=== PATIENT | female | born 1970 ===

== ENCOUNTER 2020-10-08 04:01 | Emergency (ER) | payer BC, OTHER ==
[2020-10-08] MEDS ORDERED: Ondansetron 4 MG Tab.DIS PO ONE (04:02)
[2020-10-08] MEDS ORDERED: Sodium Chloride 0.9% 1,000 ML IV ONE (04:10)
[2020-10-08] MEDS ORDERED: Ondansetron 4 MG/2 ML SDV IVPUSH PRN (04:12)
--- NOTE | 2020-10-08 04:34 | EDM.PDOC ---
ED HPI GENERAL MEDICAL PROBLEM - General Stated Complaint: HAS DKE, HIGH BLOOD SUGAR Time Seen by Provider: 10/08/20 04:28 Source of Information: Reports: Patient, Family History Limitations: Reports: No Limitations - History of Present Illness INITIAL COMMENTS - FREE TEXT/NARRATIVE: ED per w/c with report of DKA. Hx of episodes every 2-5 months, Recent hospitalization 2 weeks ago/ Onset sx 2 days prior. Vomiting weakness, BS 250's. Primary care, [facility]. Here in area for fishing trip with family. Abdomen Pain Score (Numeric/FACES): 8 - Related Data Allergies Allergy/AdvReac Type Severity Reaction Status Date / Time No Known Allergies Allergy Verified 10/08/20 04:41 Home Meds: Home Meds Insulin Lispro 100 unit SQ 10/08/20 [History] Ondansetron [Zofran ODT] 10/08/20 [History] ED ROS GENERAL - Review of Systems Review Of Systems: See Below Constitutional: Reports: Decreased Appetite. Denies: Fever, Chills HEENT: Reports: Glasses Respiratory: Reports: No Symptoms Cardiovascular: Reports: No Symptoms Endocrine: Reports: High Glucose GI/Abdominal: Reports: Abdominal Pain, Nausea, Vomiting : Reports: No Symptoms Musculoskeletal: Reports: No Symptoms Skin: Reports: No Symptoms Neurological: Reports: No Symptoms Psychiatric: Reports: No Symptoms ED EXAM GENERAL NO PERIP PULSE - Physical Exam Exam: See Below Exam Limited By: No Limitations General Appearance: Alert, Mild Distress, Obese Eye Exam: Bilateral Eye: EOMI Ears: Normal External Exam Nose: Normal Inspection Throat/Mouth: Normal Inspection Head: Atraumatic, Normocephalic Neck: Normal Inspection Respiratory/Chest: No Respiratory Distress, Lungs Clear, Normal Breath Sounds Cardiovascular: Regular Rate, Rhythm, Tachycardia GI/Abdominal: Normal Bowel Sounds, Tender (general) Extremities: Normal Inspection Neurological: Alert, Oriented, Normal Cognition Psychiatric: Normal Affect Skin Exam: Warm, Dry, Intact, Tattoo(s) #1 Interpretation EKG Date: 10/08/20 Time: 05:05 Rhythm: Other Rate (Beats/Min): 118 P-Wave: Present QRS: Normal ST-T: Normal Comparison: NA - No Prior EKG Course - Vital Signs Last Recorded V/S: Last Vital Signs Temp 97.2 F 10/08/20 04:36 Pulse 124 H 10/08/20 04:36 Resp 16 10/08/20 04:36 BP 162/99 H 10/08/20 04:36 Pulse Ox 93 L 10/08/20 04:36 - Orders/Labs/Meds Labs: Laboratory Tests 10/08/20 10/08/20 10/08/20 Range/Units 04:17 04:28 04:28 WBC 16.6 H (5.0-10.0) 10^3/uL RBC 4.88 (4.2-5.4) 10^6/uL Hgb 12.9 (12.0-16.0) g/dL Hct 39.7 (37.0-47.0) % MCV 81.4 (80-100) fL MCH 26.4 L (27.0-34.0) pg MCHC 32.5 L (33.0-35.0) g/dL Plt Count 319 (150-450) 10^3/uL Neut % (Auto) 89.0 H (42.2-75.2) % Lymph % (Auto) 6.3 L (20.5-50.1) % [place] % (Auto) 4.6 (2-8) % Eos % (Auto) 0.0 L (1.0-3.0) % Baso % (Auto) 0.1 (0.0-1.0) % ABG pH (7.35-7.45) ABG pCO2 (35-45) mmHg ABG pO2 (70-100) mmHg ABG HCO3 (22-26) mmol/L ABG O2 Saturation (95-100) % ABG Base Excess ((-2)-(+3)) mmol/L Stepan Test O2 Delivery Device Sodium 136 (136-145) mmol/L Potassium 4.4 (3.5-5.1) mmol/L Chloride 98 (98-107) mmol/L Carbon Dioxide 27 (21-32) mmol/L Anion Gap 15.4 H (7-13) mEq/L BUN 18 (7-18) mg/dL Creatinine 0.93 (0.55-1.02) mg/dL Est Cr Clr Drug Dosing 62.49 mL/min Estimated GFR (MDRD) > 60 BUN/Creatinine Ratio 19.4 (No establ ref range) Glucose 287 H (70-99) mg/dL POC Glucose 275 H (70-99) mg/dL Lactic Acid (0.4-2.0) mmol/L Calcium 9.1 (8.5-10.1) mg/dL Magnesium 1.4 L (1.8-2.4) mg/dL Total Bilirubin 0.4 (0.2-1.0) mg/dL AST 20 (15-37) U/L ALT 27 (14-59) U/L Alkaline Phosphatase 135 H (46-116) U/L B-Natriuretic Peptide 83 (0-100) pg/ml Total Protein 7.3 (6.4-8.2) g/dL Albumin 3.1 L (3.4-5.0) g/dL Globulin 4.2 Albumin/Globulin Ratio 0.74 Ketones Small-20 mg/dl Influenza Type A RNA (NEGATIVE) Influenza Type B RNA (NEGATIVE) SARS-CoV-2 RNA ([place]OR) (NEGATIVE) 10/08/20 10/08/20 10/08/20 Range/Units 04:28 04:46 04:59 WBC (5.0-10.0) 10^3/uL RBC (4.2-5.4) 10^6/uL Hgb (12.0-16.0) g/dL Hct (37.0-47.0) % MCV (80-100) fL MCH (27.0-34.0) pg MCHC (33.0-35.0) g/dL Plt Count (150-450) 10^3/uL Neut % (Auto) (42.2-75.2) % Lymph % (Auto) (20.5-50.1) % [place] % (Auto) (2-8) % Eos % (Auto) (1.0-3.0) % Baso % (Auto) (0.0-1.0) % ABG pH 7.43 (7.35-7.45) ABG pCO2 38 (35-45) mmHg ABG pO2 79 (70-100) mmHg ABG HCO3 24.5 (22-26) mmol/L ABG O2 Saturation 95 (95-100) % ABG Base Excess 1 ((-2)-(+3)) mmol/L Stepan Test Performed O2 Delivery Device Room air Sodium (136-145) mmol/L Potassium (3.5-5.1) mmol/L Chloride (98-107) mmol/L Carbon Dioxide (21-32) mmol/L Anion Gap (7-13) mEq/L BUN (7-18) mg/dL Creatinine (0.55-1.02) mg/dL Est Cr Clr Drug Dosing mL/min Estimated GFR (MDRD) BUN/Creatinine Ratio (No establ ref range) Glucose (70-99) mg/dL POC Glucose (70-99) mg/dL Lactic Acid 1.5 (0.4-2.0) mmol/L Calcium (8.5-10.1) mg/dL Magnesium (1.8-2.4) mg/dL Total Bilirubin (0.2-1.0) mg/dL AST (15-37) U/L ALT (14-59) U/L Alkaline Phosphatase (46-116) U/L B-Natriuretic Peptide (0-100) pg/ml Total Protein (6.4-8.2) g/dL Albumin (3.4-5.0) g/dL Globulin Albumin/Globulin Ratio Ketones Influenza Type A RNA Negative (NEGATIVE) Influenza Type B RNA Negative (NEGATIVE) SARS-CoV-2 RNA ([place]OR) Negative (NEGATIVE) 10/08/20 10/08/20 Range/Units 05:16 07:19 WBC (5.0-10.0) 10^3/uL RBC (4.2-5.4) 10^6/uL Hgb (12.0-16.0) g/dL Hct (37.0-47.0) % MCV (80-100) fL MCH (27.0-34.0) pg MCHC (33.0-35.0) g/dL Plt Count (150-450) 10^3/uL Neut % (Auto) (42.2-75.2) % Lymph % (Auto) (20.5-50.1) % [place] % (Auto) (2-8) % Eos % (Auto) (1.0-3.0) % Baso % (Auto) (0.0-1.0) % ABG pH (7.35-7.45) ABG pCO2 (35-45) mmHg ABG pO2 (70-100) mmHg ABG HCO3 (22-26) mmol/L ABG O2 Saturation (95-100) % ABG Base Excess ((-2)-(+3)) mmol/L Stepan Test O2 Delivery Device Sodium (136-145) mmol/L Potassium (3.5-5.1) mmol/L Chloride (98-107) mmol/L Carbon Dioxide (21-32) mmol/L Anion Gap (7-13) mEq/L BUN (7-18) mg/dL Creatinine (0.55-1.02) mg/dL Est Cr Clr Drug Dosing mL/min Estimated GFR (MDRD) BUN/Creatinine Ratio (No establ ref range) Glucose (70-99) mg/dL POC Glucose 242 H 241 H (70-99) mg/dL Lactic Acid (0.4-2.0) mmol/L Calcium (8.5-10.1) mg/dL Magnesium (1.8-2.4) mg/dL Total Bilirubin (0.2-1.0) mg/dL AST (15-37) U/L ALT (14-59) U/L Alkaline Phosphatase (46-116) U/L B-Natriuretic Peptide (0-100) pg/ml Total Protein (6.4-8.2) g/dL Albumin (3.4-5.0) g/dL Globulin Albumin/Globulin Ratio Ketones Influenza Type A RNA (NEGATIVE) Influenza Type B RNA (NEGATIVE) SARS-CoV-2 RNA ([place]) (NEGATIVE) Meds: Medications Discontinued Medications Generic Name Dose Route Start Last Admin Trade Name Freq PRN Reason Stop Dose Admin Dextrose/Water 50 ml 10/08/20 05:03 50% Dextrose In Water 50 Ml Syringe IV Q15M PRN Hypoglycemia Glucagon 1 mg 10/08/20 05:03 Glucagon,Human Recombinant 1 Mg Vial IM Q15M PRN Hypoglycemia Sodium Chloride 1,000 mls @ 999 mls/hr 10/08/20 04:10 10/08/20 04:34 Normal Saline IV 10/08/20 05:10 999 mls/hr .BOLUS ONE Administration Insulin Human Regular 5 unit 10/08/20 05:03 Insulin Regular, Human 100 Units/Ml 3 Ml Vial IV 10/08/20 05:04 ONETIME ONE Iopamidol 100 ml 10/08/20 05:57 10/08/20 05:59 Iopamidol 612 Mg/Ml 100 Ml Bottle IVPUSH 10/08/20 05:58 100 ml ONETIME ONE Administration Morphine Sulfate 2 mg 10/08/20 05:02 10/08/20 05:11 Morphine 2 Mg/Ml Syringe IVPUSH 10/08/20 05:03 2 mg ONETIME ONE Administration Morphine Sulfate 2 mg 10/08/20 05:33 10/08/20 06:40 Morphine 2 Mg/Ml Syringe IVPUSH 2 mg ONETIME PRN Administration Pain Ondansetron HCl 4 mg 10/08/20 04:12 10/08/20 04:34 Ondansetron 4 Mg/2 Ml Sdv IVPUSH 4 mg ONETIME PRN Administration Nausea/Vomiting Ondansetron HCl Confirm 10/08/20 07:14 10/08/20 07:27 Ondansetron 4 Mg Tab.Dis Administered 10/08/20 07:15 Not Given Dose 4 mg .ROUTE .STK-MED ONE Departure - Departure Time of Disposition: 06:59 Disposition: Home, Self-Care 01 Condition: Good Clinical Impression: Hyperglycemia - Discharge Information *PRESCRIPTION DRUG MONITORING PROGRAM REVIEWED*: No *COPY OF PRESCRIPTION DRUG MONITORING REPORT IN PATIENT SILVESTRE: No Instructions: Hyperglycemia, [id number] Additional Instructions: rest monitor blood sugars, follow up if increasing and not responding to short acting insulin light diet increase fluids zofran 4mg ODT one every 4 hours as needed for nausea
[2020-10-08 05:00] LABS: BASE EXCESS ARTERIAL 1 mmol/L ((-2)-(+3)); BICARBONATE,ARTERIAL 24.5 mmol/L (22-26); O2 DELIVERY DEVICE ROOM AIR; O2 SATURATION ARTERIAL 95 % (95-100); PCO2 ARTERIAL 38 mmHg (35-45); PO2 ARTERIAL 79 mmHg (70-100)
[2020-10-08 05:01] LABS: ALLEN TEST PERFORMED
[2020-10-08] MEDS ORDERED: Morphine 2 MG/ML SYRINGE IVPUSH ONE (05:02)
[2020-10-08] MEDS ORDERED: Glucagon,Human Recombinant 1 MG Vial IM PRN (05:03)
[2020-10-08] MEDS ORDERED: 50% Dextrose in Water 50 ML Syringe IV PRN (05:03)
[2020-10-08] MEDS ORDERED: Insulin Regular, Human 100 Units/ML 3 ML Vial IV ONE (05:03)
[2020-10-08 05:08] LABS: ANION GAP 15.4 mEq/L (7-13); CHLORIDE,CL 98 mmol/L (98-107); SODIUM,NA 136 mmol/L (136-145)
[2020-10-08] MEDS ORDERED: Morphine 2 MG/ML SYRINGE IVPUSH PRN (05:33)
[2020-10-08 05:37] LABS: CORONAVIRUS COVID-19 NAA NEGATIVE (NEGATIVE)
[2020-10-08] MEDS ORDERED: Iopamidol 612 MG/ML 100 ML Bottle IVPUSH ONE (05:57)
--- NOTE | 2020-10-08 06:51 | CT ---
PROCEDURE INFORMATION: Exam: CT Abdomen And Pelvis With Contrast Exam date and time: 10/08/2020 5:56 AM Age: 50 years old Clinical indication: Abdominal pain; Generalized; Patient HX: Wbc 16.6 TECHNIQUE: Imaging protocol: Computed tomography of the abdomen and pelvis with contrast. Radiation optimization: All CT scans at this facility use at least one of these dose optimization techniques: automated exposure control; mA and/or kV adjustment per patient size (includes targeted exams where dose is matched to clinical indication); or iterative reconstruction. Contrast material: [id number]; Contrast volume: 100 ml; Contrast route: INTRAVENOUS (IV); COMPARISON: No relevant prior studies available. FINDINGS: Liver: Normal. No mass. Gallbladder and bile ducts: Normal. No calcified stones. No ductal dilation. Pancreas: Normal. No ductal dilation. Spleen: Normal. No splenomegaly. Adrenal glands: Normal. No mass. Kidneys and ureters: Normal. No hydronephrosis. Stomach and bowel: Unremarkable. No obstruction. No mucosal thickening. Appendix: No evidence of appendicitis. Intraperitoneal space: Unremarkable. No free air. No significant fluid collection. Vasculature: The aorta demonstrates mild atherosclerotic calcification. Lymph nodes: Unremarkable. No enlarged lymph nodes. Urinary bladder: Unremarkable as visualized. Reproductive: Unremarkable as visualized. Bones/joints: Unremarkable. No acute fracture. Soft tissues: Unremarkable. IMPRESSION: No acute findings.
[2020-10-08] MEDS ORDERED: Ondansetron 4 MG Tab.DIS ONE (07:14)
== END 2020-10-08 07:28 | disposition home or self-care (01) ==
LOC: DL.ED 04:01
DX: E10.65 Type 1 diabetes mellitus with hyperglycemia (principal); Z20.822 Contact with and (suspected) exposure to COVID-19
CPT/HCPCS: 0240U; 36415; 36600; 74177; 80053; 82009; 82803; 82947; 83605; 83735; 83880; 85025; 93005; 96374; 96375; 96376; 99285; A9270; J1815; J2270; J2405; J7030; Q9967